=== PATIENT | male | born 1940 | race Caucasian/White ===

== ENCOUNTER 2022-10-31 08:59 | Inpatient (IN) | payer MEDICARE, OTHER ==
[2022-10-31] MEDS ORDERED: Ondansetron PF 4 MG/2 ML Vial ONE (11:10)
[2022-10-31] MEDS ORDERED: Morphine 4 MG/ML VIAL ONE (11:10)
[2022-10-31] MEDS ORDERED: Promethazine HCl 12.5 MG in Sodium Chloride 0.9% 50 ML IVPB PRN (14:04)
[2022-10-31 14:54] VITALS: BMI 32.3
[2022-10-31] MEDS: Morphine 4 MG/ML VIAL SLOW IVP PRN ×2 (15:05→20:41)
[2022-10-31] MEDS ORDERED: Senokot S 8.6-50 MG TAB PO PRN (15:11)
[2022-10-31] MEDS ORDERED: Acetaminophen 325 MG TAB PO PRN (15:11)
[2022-10-31] MEDS ORDERED: Ondansetron ODT 4 MG TAB PO PRN (15:11)
[2022-10-31] MEDS ORDERED: Guaifenesin DM 100-10/5 ML UDCUP PO PRN (15:11)
[2022-10-31] MEDS ORDERED: Ondansetron PF 4 MG/2 ML Vial IVP PRN (15:11)
[2022-10-31] MEDS ORDERED: Acetaminophen 650 MG Suppository PR PRN (15:11)
[2022-10-31] MEDS: cefTRIAXone\\ROCEPHIN 2 GM in Sodium Chloride 0.9% 100 ML IVPB SCH (16:08)
[2022-10-31] MEDS ORDERED: hydrALAZINE 20 MG/ML VIAL SLOW IVP PRN (16:42)
[2022-10-31] MEDS ORDERED: Labetalol HCl 100 MG/20 ML VIAL SLOW IVP PRN (16:42)
[2022-10-31 16:49] LABS: INR-International Normal Ratio 1.1; PTT 32.1 sec (22.9-36.1); Prothrombin Time 14.7 sec (12.0-14.7)
[2022-10-31 17:17] LABS: HBCM Index 0.08 S/CO (0-0.79); HBSAg Index 0.23 S/CO (0-0.99); Hep A IgM AB Non-Reactive S/CO (NonReactive); Hep A IgM S/CO 0.18 S/CO (0-0.79); Hep B Surf Ag Non-Reactive S/CO (NonReactive); Hep C IgG Ab Non-Reactive S/CO (NonReactive); Hepatitis B Core IgM Abs Non-Reactive S/CO (NonReactive)
[2022-10-31] MEDS: metroNIDAZOLE 500 MG in Premix Bag 1 BAG IVPB SCH (20:41)
[2022-11-01] MEDS: Morphine 4 MG/ML VIAL SLOW IVP PRN (02:34)
[2022-11-01] MEDS: metroNIDAZOLE 500 MG in Premix Bag 1 BAG IVPB SCH ×3 (05:10→21:26)
[2022-11-01] MEDS ORDERED: Bupivacaine/Epinephrine 0.25% 30 ML VIAL ONE (09:35)
[2022-11-01] MEDS ORDERED: fentaNYL PF 100 MCG/2 ML SYRINGE ONE ×2 (09:41→12:32)
[2022-11-01] MEDS ORDERED: Morphine 4 MG/ML VIAL ONE (09:45)
[2022-11-01] MEDS ORDERED: PROPOFOL 200 MG/20 ML VIAL ONE (10:04)
[2022-11-01] MEDS ORDERED: Metoprolol Tartrate 5 MG/5 ML VIAL ONE (10:04)
[2022-11-01] MEDS ORDERED: Esmolol 100 MG/10 ML VIAL ONE (10:04)
[2022-11-01] MEDS ORDERED: Ondansetron PF 4 MG/2 ML Vial ONE (10:04)
[2022-11-01] MEDS ORDERED: Rocuronium Bromide 10 MG/ML (10ML VIAL) ONE (10:04)
[2022-11-01] MEDS ORDERED: Lidocaine 1% PF 5 ML VIAL ONE (10:04)
[2022-11-01] MEDS ORDERED: Albumin 5% 250 ML ONE (10:12)
[2022-11-01] MEDS ORDERED: SUGAMMADEX SODIUM 200 MG/2 ML VIAL ONE (11:29)
[2022-11-01] MEDS ORDERED: Acetaminophen 325 MG TAB PO SCH (13:15)
[2022-11-01] MEDS ORDERED: Ibuprofen 200 MG TAB PO PRN (13:17)
[2022-11-01] MEDS ORDERED: traMADol HCl 50 MG TAB PO SCH (13:30)
[2022-11-01] MEDS: cefTRIAXone\\ROCEPHIN 2 GM in Sodium Chloride 0.9% 100 ML IVPB SCH (15:52)
[2022-11-01 16:16] LABS: #Neutrophils 18.3 thou/uL (1.40-6.50); %Basophils 0.2 % (0.0-1.0); %Lymphocytes 5.1 % (21.0-51.0); %Monocytes 9.2 % (0.0-10.0); %Neutrophils 84.6 % (42.0-75.0); Hemoglobin 17.6 g/dL (14.0-18.0); Mean Corpuscular HGB CONC 33.8 g/dL (32.0-36.0); Mean Corpuscular Hemoglobin 30.3 pg (27.0-31.0); Mean Corpuscular Volume 89.8 fl (78.0-98.0); Mean Platelet Volume 12.8 fL (7.4-10.4); Platelet Count 119 10x3/uL (130-400); RBC Distribution Width 14.9 % (11.5-14.5); White Blood Cell (WBC) Count 21.6 10x3/uL (4.8-10.8)
[2022-11-01 16:36] LABS: ALT (SGPT) 35 U/L (8-55); AST (SGOT) 32 U/L (5-34); Albumin 3.6 g/dL (3.4-4.8); Alkaline Phosphatase 72 U/L (40-110); Anion Gap 17 mmol/L (10-20); BUN (Urea Nitrogen) 26 mg/dL (8.4-25.7); Bilirubin, Total 3.5 mg/dL (0.2-1.2); Calc. Creatinine Clearance 82 mL/min (70-130); Calcium 8.9 mg/dL (7.8-10.44); Carbon Dioxide 20 mmol/L (23-31); Chloride 103 mmol/L (98-107); Estimated GFR 65; Globulin 2.8 g/dL (2.4-3.5); Glucose 164 mg/dL (83-110); Protein, Total 6.4 g/dL (5.8-8.1); Sodium 136 mmol/L (136-145)
[2022-11-01] MEDS: traMADol HCl 50 MG TAB PO SCH ×3 (17:50→22:39)
[2022-11-01] MEDS: Acetaminophen 325 MG TAB PO SCH ×3 (17:51→22:39)
[2022-11-02] MEDS ORDERED: Sodium Chloride 0.9% 500 ML IV SCH (00:30)
[2022-11-02] MEDS ORDERED: Sodium Chloride 0.9% 1,000 ML IV SCH (01:15)
[2022-11-02 01:26] LABS: #Monocytes 1.6 thou/uL (0.11-0.59); #Neutrophils 10.6 thou/uL (1.40-6.50); %Basophils 0.1 % (0.0-1.0); %Lymphocytes 8.3 % (21.0-51.0); %Monocytes 11.8 % (0.0-10.0); %Neutrophils 79.4 % (42.0-75.0); Hemoglobin 15.6 g/dL (14.0-18.0); Mean Corpuscular HGB CONC 34.3 g/dL (32.0-36.0); Mean Corpuscular Hemoglobin 30.6 pg (27.0-31.0); Mean Corpuscular Volume 89.2 fl (78.0-98.0); Mean Platelet Volume 11.6 fL (7.4-10.4); Platelet Count 100 10x3/uL (130-400); RBC Distribution Width 14.6 % (11.5-14.5); White Blood Cell (WBC) Count 13.3 10x3/uL (4.8-10.8)
[2022-11-02 01:47] LABS: CellaVision Operator ID lab.abc; Platelet Adequacy Comment Platelets Decreased; RBC Morphology Within Normal Limits
[2022-11-02 02:33] LABS: ALT (SGPT) 33 U/L (8-55); AST (SGOT) 26 U/L (5-34); Albumin 3.2 g/dL (3.4-4.8); Alkaline Phosphatase 63 U/L (40-110); Anion Gap 16 mmol/L (10-20); BUN (Urea Nitrogen) 26 mg/dL (8.4-25.7); Bilirubin, Total 3.1 mg/dL (0.2-1.2); Calc. Creatinine Clearance 90 mL/min (70-130); Calcium 8.5 mg/dL (7.8-10.44); Carbon Dioxide 21 mmol/L (23-31); Chloride 102 mmol/L (98-107); Estimated GFR 72; Globulin 2.4 g/dL (2.4-3.5); Glucose 123 mg/dL (83-110); Magnesium 1.9 mg/dL (1.6-2.6); Potassium 3.4 mmol/L (3.5-5.1); Protein, Total 5.6 g/dL (5.8-8.1); Sodium 136 mmol/L (136-145)
[2022-11-02] MEDS ORDERED: Potassium Chloride 20 MEQ TAB PO SCH (03:00)
[2022-11-02] MEDS: metroNIDAZOLE 500 MG in Premix Bag 1 BAG IVPB SCH ×3 (05:12→21:01)
[2022-11-02] MEDS: Acetaminophen 325 MG TAB PO SCH ×3 (11:13→23:46)
[2022-11-02] MEDS: traMADol HCl 50 MG TAB PO SCH ×3 (11:13→23:46)
[2022-11-02] MEDS: cefTRIAXone\\ROCEPHIN 2 GM in Sodium Chloride 0.9% 100 ML IVPB SCH (15:47)
[2022-11-02] MEDS ORDERED: Ondansetron ORAL SOLN. 4 MG/5 ML UDCUP PO PRN (16:41)
[2022-11-02] MEDS ORDERED: Acetaminophen 500 MG TAB PO PRN (16:42)
[2022-11-03] MEDS: traMADol HCl 50 MG TAB PO SCH ×3 (05:30→16:38)
[2022-11-03] MEDS: metroNIDAZOLE 500 MG in Premix Bag 1 BAG IVPB SCH ×3 (05:30→21:55)
[2022-11-03] MEDS ORDERED: metroNIDAZOLE 500 MG/100 ML BAG ONE (05:41)
[2022-11-03] MEDS: Acetaminophen 325 MG TAB PO SCH ×3 (06:48→16:37)
[2022-11-03 07:40] LABS: #Monocytes 1.1 thou/uL (0.11-0.59); #Neutrophils 9.1 thou/uL (1.40-6.50); %Basophils 0.3 % (0.0-1.0); %Eosinophils 0.2 % (0.0-10.0); %Lymphocytes 12.8 % (21.0-51.0); %Monocytes 9.1 % (0.0-10.0); Hemoglobin 16.2 g/dL (14.0-18.0); Mean Corpuscular HGB CONC 33.5 g/dL (32.0-36.0); Mean Corpuscular Hemoglobin 30.1 pg (27.0-31.0); Mean Corpuscular Volume 89.8 fl (78.0-98.0); Mean Platelet Volume 11.8 fL (7.4-10.4); Platelet Count 155 10x3/uL (130-400); RBC Distribution Width 14.8 % (11.5-14.5); Red Blood Cell (RBC) Count 5.39 mill/uL (4.70-6.10); White Blood Cell (WBC) Count 11.8 10x3/uL (4.8-10.8)
[2022-11-03 08:15] LABS: ALT (SGPT) 28 U/L (8-55); AST (SGOT) 20 U/L (5-34); Albumin 3.2 g/dL (3.4-4.8); Alkaline Phosphatase 80 U/L (40-110); Anion Gap 16 mmol/L (10-20); BUN (Urea Nitrogen) 28 mg/dL (8.4-25.7); Bilirubin, Total 1.9 mg/dL (0.2-1.2); Calc. Creatinine Clearance 104 mL/min (70-130); Calcium 8.8 mg/dL (7.8-10.44); Carbon Dioxide 23 mmol/L (23-31); Chloride 105 mmol/L (98-107); Estimated GFR 86; Globulin 2.9 g/dL (2.4-3.5); Glucose 130 mg/dL (83-110); Potassium 3.9 mmol/L (3.5-5.1); Protein, Total 6.1 g/dL (5.8-8.1); Sodium 140 mmol/L (136-145)
[2022-11-03] MEDS: Polyethylene Glycol 3350 17 GM Packet PO SCH (09:41)
[2022-11-03] MEDS ORDERED: Electrolyte Replacement Protocol FS SCH (11:30)
[2022-11-03] MEDS ORDERED: Pantoprazole 40 MG VIAL IVP SCH (11:30)
[2022-11-03] MEDS: Lactated Ringer's 1,000 ML IV SCH ×2 (11:54→23:09)
[2022-11-03] MEDS ORDERED: Magnesium 2 GM/50 ML(in water) 2 GM in Premix Bag 1 BAG IVPB SCH (14:00)
[2022-11-03] MEDS: cefTRIAXone\\ROCEPHIN 2 GM in Sodium Chloride 0.9% 100 ML IVPB SCH (17:41)
[2022-11-04] MEDS: traMADol HCl 50 MG TAB PO SCH ×4 (00:45→17:25)
[2022-11-04] MEDS: Acetaminophen 325 MG TAB PO SCH ×4 (00:45→17:25)
[2022-11-04] MEDS: Lactated Ringer's 1,000 ML IV SCH (03:40)
[2022-11-04] MEDS: metroNIDAZOLE 500 MG in Premix Bag 1 BAG IVPB SCH ×3 (05:11→21:33)
[2022-11-04] MEDS ORDERED: Pantoprazole 40 MG VIAL IVP SCH (09:00)
[2022-11-04] MEDS: Polyethylene Glycol 3350 17 GM Packet PO SCH (09:21)
[2022-11-04 12:34] LABS: #Eosinphils 0.3 thou/uL (0.0-0.7); #Monocytes 0.8 thou/uL (0.11-0.59); #Neutrophils 4.5 thou/uL (1.40-6.50); %Basophils 0.6 % (0.0-1.0); %Lymphocytes 20.4 % (21.0-51.0); %Monocytes 10.7 % (0.0-10.0); %Neutrophils 63.2 % (42.0-75.0); Hemoglobin 15.3 g/dL (14.0-18.0); Mean Corpuscular HGB CONC 33.9 g/dL (32.0-36.0); Mean Corpuscular Hemoglobin 30.1 pg (27.0-31.0); Mean Corpuscular Volume 88.8 fl (78.0-98.0); Mean Platelet Volume 11.3 fL (7.4-10.4); Platelet Count 155 10x3/uL (130-400); RBC Distribution Width 14.6 % (11.5-14.5); Red Blood Cell (RBC) Count 5.08 mill/uL (4.70-6.10); White Blood Cell (WBC) Count 7.2 10x3/uL (4.8-10.8)
[2022-11-04 13:01] LABS: ALT (SGPT) 28 U/L (8-55); AST (SGOT) 27 U/L (5-34); Albumin 3.1 g/dL (3.4-4.8); Alkaline Phosphatase 93 U/L (40-110); Anion Gap 15 mmol/L (10-20); BUN (Urea Nitrogen) 27 mg/dL (8.4-25.7); Bilirubin, Total 1.6 mg/dL (0.2-1.2); Calc. Creatinine Clearance 108 mL/min (70-130); Calcium 8.8 mg/dL (7.8-10.44); Carbon Dioxide 24 mmol/L (23-31); Chloride 104 mmol/L (98-107); Estimated GFR 87; Globulin 2.8 g/dL (2.4-3.5); Glucose 118 mg/dL (83-110); Iron 60 ug/dL (65-175); Iron Binding Capacity, Total 223 mcg/dL (261-462); Potassium 3.6 mmol/L (3.5-5.1); Protein, Total 5.9 g/dL (5.8-8.1); Sodium 139 mmol/L (136-145)
[2022-11-04 13:17] LABS: Ferritin 493.44 ng/mL (22-322)
[2022-11-04 13:18] LABS: HBSAB Concentration Less than 8.00 mIU/mL; Hep B Surf AB Non-Reactive (NonReactive)
[2022-11-04] MEDS: cefTRIAXone\\ROCEPHIN 2 GM in Sodium Chloride 0.9% 100 ML IVPB SCH (17:19)
[2022-11-05] MEDS: traMADol HCl 50 MG TAB PO SCH ×3 (01:22→12:13)
[2022-11-05] MEDS: Acetaminophen 325 MG TAB PO SCH ×3 (01:22→12:13)
[2022-11-05 06:47] LABS: ALT (SGPT) 24 U/L (8-55); AST (SGOT) 26 U/L (5-34); Albumin 2.8 g/dL (3.4-4.8); Alkaline Phosphatase 89 U/L (40-110); Anion Gap 13 mmol/L (10-20); BUN (Urea Nitrogen) 21 mg/dL (8.4-25.7); Bilirubin, Total 1.2 mg/dL (0.2-1.2); Calc. Creatinine Clearance 110 mL/min (70-130); Calcium 8.1 mg/dL (7.8-10.44); Carbon Dioxide 24 mmol/L (23-31); Chloride 107 mmol/L (98-107); Estimated GFR 87; Globulin 2.6 g/dL (2.4-3.5); Glucose 99 mg/dL (83-110); Magnesium 2.1 mg/dL (1.6-2.6); Phosphorus 3.1 mg/dL (2.3-4.7); Potassium 3.7 mmol/L (3.5-5.1); Protein, Total 5.4 g/dL (5.8-8.1); Sodium 140 mmol/L (136-145)
[2022-11-05] MEDS: Polyethylene Glycol 3350 17 GM Packet PO SCH (08:47)
[2022-11-05 12:40] VITALS: BP 158/83; TEMP 98.3
[2022-11-06 10:12] LABS: Smooth Muscle Total ABS 6 Units (0-19)
[2022-11-06 12:24] LABS: ANA Symphony (Qualitative) Negative (Negative); ANA Symphony (Quantitative) 0.2 Ratio (< 0.7 Negative); EliA Vaculitis New Method **** NEW METHOD ****; Mitochondrial Ab 6.8 U/mL (<4 Negative); dsDNA IgG Antibody 0.7 IU/mL (<10 Negative)
== END 2022-11-05 12:50 | disposition home or self-care (01) | DRG 854 ==
LOC: ERS 08:59 → T4-B 13:28
PROVIDERS: ADMIT Emergency Medicine; ATTEND Internal Medicine
PROC: 3E03329 Introduction of Other Anti-infective into Peripheral Vein, Percutaneous Approach (ICD-10-PCS; 2022-10-31)
PROC: 0FT44ZZ Resection of Gallbladder, Percutaneous Endoscopic Approach (ICD-10-PCS; principal; 2022-11-01)
PROC: 30233J1 Transfusion of Nonautologous Serum Albumin into Peripheral Vein, Percutaneous Approach (ICD-10-PCS; 2022-11-01)
DX: A41.9 Sepsis, unspecified organism (principal); E87.20 Acidosis, unspecified; K80.00 Calculus of gallbladder with acute cholecystitis without obstruction; K56.7 Ileus, unspecified; R18.8 Other ascites; K74.60 Unspecified cirrhosis of liver; I44.7 Left bundle-branch block, unspecified; Z96.653 Presence of artificial knee joint, bilateral; N28.1 Cyst of kidney, acquired; K57.30 Diverticulosis of large intestine without perforation or abscess without bleeding; D69.6 Thrombocytopenia, unspecified; E87.6 Hypokalemia; N18.2 Chronic kidney disease, stage 2 (mild); E66.9 Obesity, unspecified; E88.09 Other disorders of plasma-protein metabolism, not elsewhere classified; K66.0 Peritoneal adhesions (postprocedural) (postinfection); Z88.0 Allergy status to penicillin; Z98.52 Vasectomy status; Z68.32 Body mass index [BMI] 32.0-32.9, adult; Z91.040 Latex allergy status; Z98.890 Other specified postprocedural states
CPT/HCPCS: 36415; 74019; 74022; 76705; 80053; 80074; 82105; 82728; 83516; 83540; 83550; 83690; 83735; 84100; 84443; 85025; 85610; 85730; 86015; 86038; 86225; 86706; 86708; 88304; 93005; 93010; 93306; 96374; 96375; C1713; C1889; C9113; J0360; J0696; J2270; J2405; J2550; J2704; J3475; J3490; J7030; J7050; J7120; P9045; Q0162